=== PATIENT | female | born 1975 | race Caucasian/White ===

== ENCOUNTER 2024-03-07 14:00 | Oncology outpatient (recurring) (ONCR) | payer OTHER, SELFPAY ==
[2024-02-27 12:01] VITALS: BP 116/77; PULSE 77; RESP 17; TEMP 36.9; O2SAT 98
[2024-02-27] MEDS: iron sucrose 200 MG in sodium chloride 0.9% (100 ml) 100 ML 220 MG IV (12:09)
[2024-02-27] MEDS: sodium chloride 0.9% 250 ML 75 ML IV (12:09)
[2024-02-27 13:05] VITALS: BP 103/64; PULSE 64; RESP 17; TEMP 36.3; O2SAT 98
[2024-03-07 14:28] VITALS: BP 116/74; PULSE 69; RESP 16; TEMP 36.9; O2SAT 99
--- NOTE | 2024-03-07 17:23 | PC.NURSE ---
Patient stated after last infusion had high fever and severe vomiting and abdominal pain thru the following day. Dr. Gerber office notified with order to hold medication until future MD appointment. Patient notified and stated understanding.
== END 2024-03-08 23:59 | disposition home or self-care (01) ==
PROVIDERS: Visit Provider Obstetrics & Gynecology
DX: Z53.9 Procedure and treatment not carried out, unspecified reason (principal)
CPT/HCPCS: 81025; 87624; 88305; 96365; J1756; J7050